=== PATIENT | female | born 1980 | race Caucasian/White ===

== ENCOUNTER 2021-08-24 22:50 | Emergency (ER) | payer BC ==
[2021-08-24] MEDS ORDERED: NA CHLORIDE 0.9% 1,000 ML ONE (23:27)
[2021-08-24 23:49] LABS: Absolute Lymphocytes (CBC) 2.4 K/uL (0.7-4.9); Basophils % 0.8 % (0-1.3); Hematocrit 42.7 % (36.0-45.0); Lymphocytes % 27.4 % (15.3-44.8); MPV 10.5 fL (7.6-11.3); RBC Red Blood Cell Count 4.68 M/uL (3.86-4.86)
[2021-08-24 23:53] LABS: Urine Blood Negative (Negative); Urine Glucose Negative (Negative); Urine Protein Negative (Negative); Urine Specific Gravity <=1.005 (1.005-1.030); Urine pH 5.5 (5.0-7.0)
[2021-08-24 23:55] LABS: Protime INR 0.91
[2021-08-25] MEDS ORDERED: NALOXONE 0.4 MG/ML VIAL ONE ×2 (00:05→02:36)
[2021-08-25 00:14] LABS: Urine Specific Gravity/Preg <1.005 (1.005-1.030)
[2021-08-25 00:14] LABS: ALT/SGPT 53 U/L (12-78); AST/SGOT 28 U/L (15-37); Albumin 4.5 g/dL (3.4-5.0); Alkaline Phosphatase 92 U/L (45-117); BUN Blood Urea Nitrogen 6 mg/dL (7-18); Bicarbonate 24 mmol/L (21-32); Bilirubin Direct < 0.1 mg/dL (0-0.2); Bilirubin Total 0.2 mg/dL (0.2-1.0); Glucose Level 98 mg/dL (74-106); Potassium 3.3 mmol/L (3.5-5.1); Protein, Total 8.8 g/dL (6.4-8.2); Sodium Level 140 mmol/L (136-145)
[2021-08-25] MEDS ORDERED: NA CHLORIDE 0.9% 1,000 ML ONE (00:15)
[2021-08-25 00:20] LABS: Barbiturates NEGATIVE (NEGATIVE); Benzodiazepines NEGATIVE (NEGATIVE); Cocaine NEGATIVE (NEGATIVE); METHAMPHETAM POSITIVE (NEGATIVE); Methadone NEGATIVE (NEGATIVE); Opiates POSITIVE (NEGATIVE); Phencyclidine NEGATIVE (NEGATIVE); THC Cannibis NEGATIVE (NEGATIVE)
--- NOTE | 2021-08-25 05:30 | EDPHYS ---
[facility]: Unique Morrell Age: 41 yrs Sex: Female : 1980 Arrival Date: 08/24/2021 Time: 22:52 Bed 19 Private MD: ED Physician Ramírez Malloy HPI: 08/24 23:45 This 41 yrs old Female presents to ER via EMS with complaints of Possible cp Overdose. 23:45 The patient presents to the emergency department with a possible overdose, EMS reports cp patient reportedly took unknown number of hydrocodone 7.5 mg tablets while consuming alcohol this evening. 23:45 Associated signs and symptoms: Pertinent positives: tearfulness, Pertinent negatives: cp vomiting. EMS reports patient was [place] on [place] alley [place] local [employer] store. [employer]: 22:52 LMP 08/15/2021 cc4 Historical: - Allergies: 22:52 Sulfa (Sulfonamide Antibiotics); cc4 22:52 phenergan; cc4 - Home Meds: 22:52 None [Active]; cc4 - PMHx: 22:52 Bipolar disorder; Anxiety; depression; adjustment disorder; histronics; overdose; cc4 suicidal attempt two years ago; - Immunization history:: Adult Immunizations up to date, Client reports having NOT received the Covid vaccine. - Social history:: Smoking status: Reported history of juuling and/or vaping. Patient uses alcohol, street drugs, Methamphetamine (Meth). - Code Status:: Full code. ROS: 23:50 Constitutional: Negative for fever. cp 23:50 Cardiovascular: Negative for chest pain. cp 23:50 Respiratory: Negative for cough, wheezing. 23:50 Abdomen/GI: Negative for abdominal pain, vomiting, diarrhea, constipation. 23:50 Neuro: Negative for altered mental status. 23:50 Psych: Negative for auditory hallucinations, visual hallucinations, homicidal ideation, suicide gesture, suicidal ideation. 23:50 All other systems are negative. Exam: 23:55 Constitutional: The patient appears in no acute distress, alert, awake, non-toxic, well cp developed, well nourished. 23:55 Head/Face: Normocephalic, atraumatic. cp 23:55 Eyes: Pupils: pinpoint, bilaterally, Conjunctiva: normal, no exudate, no injection, Sclera: no appreciated abnormality, Lids and lashes: appear normal, bilaterally. 23:55 ENT: External ear(s): are unremarkable, Nose: is normal, Mouth: Lips: moist, Oral mucosa: moist, Posterior pharynx: Airway: no evidence of obstruction, patent. 23:55 Neck: C-spine: vertebral tenderness, is not appreciated, crepitus, is not appreciated. 23:55 Chest/axilla: Inspection: normal, Palpation: is normal, no crepitus, no tenderness. 23:55 Cardiovascular: Rate: tachycardic, Rhythm: regular. 23:55 Respiratory: the patient does not display signs of respiratory distress, Respirations: normal, no use of accessory muscles, no retractions, labored breathing, is not present, Breath sounds: are clear throughout, no decreased breath sounds, no stridor, no wheezing. 23:55 Abdomen/GI: Inspection: abdomen appears normal, Bowel sounds: active, all quadrants, Palpation: abdomen is soft and non-tender, in all quadrants. 23:55 Back: pain, is absent, ROM is normal. 23:55 Skin: injury, mild ecchymosis noted inner upper right leg. 23:55 Neuro: Orientation: to person, situation, Mentation: able to follow commands, slow to respond, Motor: moves all fours, strength is normal. 23:55 Psych: Affect is animated, Judgement / Insight is impaired. Delusions/hallucinations are not present. 08/25 01:58 ECG was reviewed by the Attending Physician. cp Vital Signs: 08/24 22:52 Weight 77.11 kg; Height 5 ft. 6 in. (167.64 cm); cc4 22:52 BP 120 / 75; Pulse 113; Resp 19 S; Temp 97.8; Pulse Ox 97% on R/A; cc4 22:52 BP 120 / 75; Pulse 113; Resp 19; Temp 97.8; Pulse Ox 97% on R/A; cc4 23:00 BP 98 / 68; Pulse 89; Resp 18 S; Pulse Ox 95% on R/A; cc4 08/25 00:01 BP 91 / 54; Pulse 84; Resp 16 S; Pulse Ox 93% on R/A; cc4 00:15 BP 109 / 84; Pulse 81; Resp 16 S; Pulse Ox 92% ; cc4 00:30 BP 118 / 73; Pulse 80; Resp 16 S; Pulse Ox 94% on R/A; cc4 00:52 BP 126 / 79; Pulse 70; Resp 18 S; Pulse Ox 96% on R/A; cc4 01:00 BP 117 / 81; Pulse 72; Resp 20 S; Pulse Ox 98% on R/A; cc4 01:15 BP 114 / 79; Pulse 77; Resp 18 S; Pulse Ox 95% on R/A; cc4 01:30 BP 105 / 88; Pulse 76; Resp 14 S; Pulse Ox 91% on R/A; cc4 01:45 BP 110 / 73; Pulse 70; Resp 16 S; Pulse Ox 91% on R/A; cc4 02:00 BP 97 / 63; Pulse 68; Resp 12 S; Pulse Ox 89% on R/A; cc4 02:15 BP 103 / 70; Pulse 66; Resp 10 S; Pulse Ox 89% on R/A; cc4 02:30 BP 104 / 65; Pulse 66; Resp 12 S; Pulse Ox 90% on R/A; cc4 02:45 BP 111 / 77; Pulse 69; Resp 16 S; Pulse Ox 100% on 4 lpm NC; cc4 03:00 BP 118 / 93; Pulse 70; Resp 16 S; Pulse Ox 100% on 4 lpm NC; cc4 03:15 BP 109 / 66; Pulse 66; Resp 20 S; Pulse Ox 100% on 4 lpm NC; cc4 03:30 BP 98 / 64; Pulse 70; Resp 18 S; Pulse Ox 100% on 4 lpm NC; cc4 03:45 BP 94 / 60; Pulse 71; Resp 20 S; Pulse Ox 100% on 4 lpm NC; cc4 04:00 BP 93 / 63; Pulse 71; Resp 16 S; Pulse Ox 100% on 4 lpm NC; cc4 04:15 BP 92 / 66; Pulse 70; Resp 16 S; Pulse Ox 99% on 4 lpm NC; cc4 04:30 BP 100 / 69; Pulse 71; Resp 16 S; Pulse Ox 99% on 4 lpm NC; cc4 04:45 BP 117 / 82; Pulse 70; Resp 14 S; Pulse Ox 97% on 4 lpm NC; cc4 05:00 BP 118 / 82; Pulse 70; Resp 16 S; Temp 97.7(O); Pulse Ox 98% on 4 lpm NC; cc4 07:00 BP 103 / 63; Pulse 74; Resp 12; Temp 97.6(TE); Pulse Ox 96% on R/A; cc4 08/24 22:52 Body Mass Index 27.44 (77.11 kg, 167.64 cm) cc4 MDM: 08/24 22:56 Patient medically screened. [facility] 08/25 02:45 Transition of care: After a detail discussion of the patient's case, care is cp transferred to Ramírez Malloy MD. 02:48 Differential diagnosis: polypharmacy. Data reviewed: vital signs, nurses notes, lab janiya test result(s), EKG, radiologic studies, plain films. Data interpreted: emergency response coordinator: rate is 113 beats/min, rhythm is regular, Pulse oximetry: on room air. Test interpretation: by ED physician or midlevel provider: ECG, plain radiologic studies. Counseling: I had a detailed discussion with the patient and/or guardian regarding: the historical points, exam findings, and any diagnostic results supporting the discharge/admit diagnosis, lab results, radiology results. 08/24 22:58 Order name: Acetaminophen 08/24 22:58 Order name: Basic Metabolic Panel 08/24 22:58 Order name: CBC with Diff 08/24 22:58 Order name: ETOH Level; Complete Time: 02:47 cp 08/24 22:58 Order name: Hepatic Function; Complete Time: 02:47 cp 08/24 22:58 Order name: PT-INR; Complete Time: 02:47 cp 08/24 22:58 Order name: Ptt, Activated; Complete Time: 02:47 cp 08/24 22:58 Order name: Salicylate; Complete Time: 02:47 cp 08/24 22:58 Order name: Urine Drug Screen; Complete Time: 02:47 cp 08/24 22:58 Order name: Acetaminophen Level; Complete Time: 02:47 EDMS 08/24 22:58 Order name: Basic Metabolic Panel; Complete Time: 02:47 EDMS 08/24 22:58 Order name: CBC with Automated Diff; Complete Time: 02:47 EDMS 08/24 23:52 Order name: Urine Dipstick-Ancillary; Complete Time: 02:47 EDMS 08/24 23:52 Order name: Urine --Ancillary (enter results); Complete Time: 02:47 tt3 08/24 22:58 Order name: EKG; Complete Time: 22:58 08/24 22:58 Order name: EKG - Nurse/Tech; Complete Time: 01:57 08/24 22:58 Order name: IV Saline Lock; Complete Time: 01:57 cp 08/24 22:58 Order name: Labs collected and sent; Complete Time: 01:57 cp 08/24 22:58 Order name: Suicide Screening ([place]); Complete Time: 01:57 08/24 22:58 Order name: Urine Dipstick-Ancillary (obtain specimen); Complete Time: 00:18 08/25 00:18 Order name: CT Head C Spine 08/25 02:48 Order name: Tylenol Level [facility] 08/25 02:48 Order name: Acetaminophen Level; Complete Time: 04:24 EDMS 08/25 05:25 Order name: Diet Regular; Complete Time: 05:25 [facility] 08/24 22:58 Order name: Urine Test (obtain specimen); Complete Time: 00:18 08/25 03:06 Order name: Oxygen Per Protocol; Complete Time: 03:06 cc4 EC:58 Rate is 63 beats/min. Rhythm is regular. NM interval is normal. QRS interval is normal. cp QT interval is normal. T waves are Inverted in lead aVR. Interpreted by me. Reviewed by me. Administered Medications: 00:14 Drug: narcan 0.2mg 0.2 mg Route: IVP; Site: left antecubital; cc4 01:45 Drug: NS 0.9% 1000 ml Route: IV; Rate: 125 ml/hr; Site: left antecubital; cc4 02:15 Drug: narcan 0.2 mg 0.2 mg Route: IV; Rate: per protocol; Site: left antecubital; cc4 06:25 Not Given (Duplicate Order): NS 0.9% 1000 ml IV at 125 ml/hr continuous cc4 Disposition: 02:48 Co-signature as Attending Physician, Ramírez Malloy MD I agree with the assessment and janiya plan of care. Disposition Summary: 08/25/21 05:29 Discharge Ordered Location: Home janiya Problem: new janiya Symptoms: have improved janiya Condition: Stable janiya Diagnosis - Adverse effect of amphetamines janiya - Alcohol abuse with intoxication janiya - Adjustment disorder with anxiety janiya - Hypokalemia janiya Followup: janiya - With: Private Physician - When: 2 - 3 days - Reason: Recheck today's complaints, Continuance of care, Re-evaluation by your physician Discharge Instructions: - Discharge Summary Sheet janiya - Adjustment Disorder, Adult janiya - Alcohol Intoxication janiya - Panic Attack janiya - Substance Use Disorder janiya - Potassium Content of Foods janiya - Alcohol Intoxication, [id number] janiya - Substance Use Disorder and Mental Illness janiya - Hypokalemia janiya Forms: - Medication Reconciliation Form janiya - Thank You Letter janiya - Antibiotic Education janiya - Prescription Opioid Use janiya Signatures: Dispatcher [employer] EDMS Ramírez Malloy MD MD cha Attema, Lee, COMPUTER SUPPORT ANALYST-C COMPUTER SUPPORT ANALYST-Cla1 Ramírez Nicole PA PA cp Cooper, Christie, RN RN cc Corrections: (The following items were deleted from the chart) 01:41 08/24 23:45 EMS reports patient was found on ground by local store. cortney barr 08/25 03:37 08/24 23:05 Allergies: Sulfa (Sulfonamide Antibiotics); [place] [id number] 08/25 03:37 08/24 23:05 Home Meds: None; [place] [id number] 08/25 03:37 08/24 23:05 PMHx: Possible overdose; [place] [id number] 08/25 03:37 08/24 23:05 PMHx: histronics; [place] [id number] 08/25 03:37 08/24 23:05 PMHx: history of adjustment disorder; [place] [id number] 08/25 03:37 08/24 23:05 PMHx: depression; [place] [id number] 08/25 03:37 08/24 23:05 PMHx: anxiety; [place] [id number] 08/25 03:37 08/24 23:05 Immunization history: Adult Immunizations [place] [id number] 08/25 03:37 08/24 23:11 PMHx: suicidal two years ago cutting right arm with laceration repair; [place] [id number] 08/25 03:37 08/24 23:11 Immunization history: Adult Immunizations up to date, Client reports having [facility] NOT received the Covid vaccine. Flu vaccine status is unknown. [facility] 08/25 03:37 08/24 23:11 Social history: Smoking status: Reported history of juuling and/or vaping. [facility] Patient uses alcohol, occasionally. [facility] 08/25 03:37 08/24 23:11 Code Status: Full code cc4 [facility] 08/25 03:37 08/24 23:11 Coronavirus screen: The patient has NOT traveled to [place] in the past 14 cc4 days. The patient has NOT had contact with known/suspected case of Coronavirus? [facility] 08/25 03:37 08/24 23:11 Ebola Screening: Patient negative for fever greater than or equal to 101.5 cc4 degrees Fahrenheit, and additional compatible Ebola Virus Disease symptoms No symptoms or risks identified at this time [facility] 08/25 03:37 08/24 22:46 Allergies: Phenergan; [place] [id number] 08/25 03:37 08/24 22:46 PMHx: Bipolar disorder; [place] [id number] 08/25 06:05 05:33 Chest Single View+[email or web address] ordered. EDMS EDMS
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
[2021-08-25 08:32] VITALS: BP 103/63; TEMP 97.6; O2SAT 96
--- NOTE | 2021-08-25 10:28 | RAD REPORT ---
EXAM DESCRIPTION: CT - CTHCSPWOC - 08/25/2021 1:35 am COMPARISON: None. CLINICAL HISTORY: [facility] MAIN found on ground TECHNIQUE: Axial images were obtained from skull base to vertex without intravenous contrast. Imag es viewed on bone and brain windows. Multiplanar reformats were performed. Automated exposure contr ol was utilized on this examination as a dose lowering technique. FINDINGS: Brain parenchyma, ventricles, dura, meninges, and extra-axial spaces: Ventricles and sulci are normal. No abnormal attenuation of brain parenchyma is present. No acute intracranial hemor rhage or abnormal extra-axial fluid collections are present. Vascular structures: No hyperdense arteries or veins. Calvarium, mastoid air cells, paranasal sinuses and orbits: The calvarium is normal. The mastoid air cells are clear. Mild polysinusitis. Orbital structures are unremarkable. EXAM DESCRIPTION: CT Cervical Spine COMPARISON: None. CLINICAL HISTORY: [facility] MAIN found on ground TECHNIQUE: Axial CT images were obtained through the entire cervical spine without contrast. Sagit kasey and coronal reconstructions are provided. Automated exposure control was utilized on this examina tion as a dose lowering technique. FINDINGS: Vertebrae: Vertebral statures and alignment are normal. No acute fracture, dislocation o r destructive osseous process is present. Spinal canal, foramina, and facet joints: No significant spinal canal or foraminal stenoses. No significant facet arthropathy. Paraspinous soft-tissues: Normal. Thyroid: Normal. Other Findings: None. IMPRESSION: HEAD IMPRESSION: No acute intracranial abnormality. C-SPINE IMPRESSION: No acute findings of the cervical spine. Electronically signed by: Yuan Matos MD 08/25/2021 1:21 AM MOLASSES PREPARER Due to temporary technical issues with the PACS/Fluency reporting system, reports are being signed by the in house radiologist without review as a courtesy to ensure prompt reporting. The interpreting r adiologist is fully responsible for the content of the report.
--- NOTE | 2021-08-25 20:36 | EKG ---
Test Date: 2021-08-25 Test Time: 01:56:47 Field Marketer: TATIANA MEASUREMENT RESULTS: Intervals: Rate: 63 ND: 192 QRSD: 78 QT: 432 QTc: 442 [place]: P: 37 ND: 192 QRS: 44 T: 32 INTERPRETIVE STATEMENTS: Normal sinus rhythm Normal ECG No previous ECG available for comparison Electronically Signed On 08-25-21 20:35:00 PARKS RECREATION DIRECTOR by Akash Hernandez
--- OUTSIDE RECORDS SUMMARY | 2021-08-26 22:12 | XMS REPORT | Continuity of Care Document ---
:1980 Author Organization [facility] t Address [address] [place] [address] Care Team Providers Name Role Phone Kj VILLEGAS Primary Care Physician Unavailable RODRIGO Attending Clinician Unavailable Rodrigo DAVIS Attending Clinician Payers Payer Name Policy Type Policy Number Effective Date Expiration Date S nick [facility] [id number] 2017 00:00:00 Problems Condition Condition Condition Status Onset Resolution Last Treating Co mments Source Name Details Category Date Date Treatment Clinician Date Obesity Obesity Disease Active 2019-10 Univers (BMI (BMI 0-21 ity of 30-39.9) 30-39.9) 00:00: [place] 00 Medical Branch Antepartum Antepartum Disease Active U nivers variable variable 6-12 [place] Status Status Disease Active Univers post tubal post tubal 5-24 it y of ligation ligation 00:00: [place] 00 Medical Branch History of History of Disease Active U nivers 5-05 [place] of delivery, [place], [place] 00 Medi bill Branch in third in third trimester trimester AMA AMA Disease Active Univers (advanced (advanced 5-05 ity of maternal maternal 00:00: [place] age) age) 00 Medical multigravi multigravi Br anch da 35+, da 35+, third third trimester trimester Gastroesop Gastroesop Disease Active 2016-0 U jaleel harpereal hageal 5-05 ity of reflux reflux 00:00: [place] disease disease 00 Medical without without Branch esophagiti esophagiti s s Allergies, Adverse Reactions, Alerts Allergy Allergy Status Severity Reaction(s) Onset Inactive Treating Comm ents Source Name Type Date Date Clinician Prometha Propensi Active Rash 2005-10 Univer s zine Hcl ty to 2-22 ity of adverse 00:00: [place] reaction 00 Medical s Branch Sulfa Propensi Active Unknown - 2005-10 Unive rs (Sulfona ty to See comments 2-22 it y of mide adverse 00:00: [place] Antibiot reaction 00 Medica l ics) s Branch PROMETHA DRUG Active Rash 2005-10 Univers ZINE HCL INGREDI 2-22 ity of 00:00: [place] 00 Medical Branch SULFA Drug Active Unknown-Cmnt 2005-10 Univ ers (SULFONA Class 2-22 ity of MIDE 00:00: [place] ANTIBIOT 00 Medical ICS) Branch Social History Social Habit Start Date Stop Date Quantity Comments Source History of Cigarette Smoker Universi ty of tobacco use [facility] History SDOH University o f Alcohol Frequency [place] [facility] History SDOH University o f Alcohol Std [place] [facility] Drinks [facility] History SDWI University o f Alcohol Binge [place] Medic al Branch Exposure to Not sure University of SARS-CoV-2 [facility] (event) Ava Alcohol intake 2021-08-21 2021-08-21 0 /d University of 00:00:00 00:00:00 [facility] Tobacco use and 2020-08-03 2020-08-03 Never used Universit y of exposure 00:00:00 00:00:00 [facility] Alcohol Comment 2018-07-23 2018-07-23 Rare Universit y of 00:00:00 00:00:00 [facility] Tobacco Comment 2018-07-23 2018-07-23 5 cig per day Univer sity of 00:00:00 00:00:00 [facility] Sex Assigned At [birth year] Universit y of 00:00:00 00:00:00 [facility] Smoking Status Start Date Stop Date Source Former smoker 2020-08-03 00:00:00 2020-08-03 00:00:00 [facility] [place] [facility] Medications Ordered Filled Start Stop Current Ordering Indication Dosage Frequency Signature Comments Components Source Medication Medication Date Date Medication? Clinician (SIG) Name Name phentermine 2020-10- No 37.5mg Take 37.5 Univers 37.5 mg 10-21 mg by ity of tablet 14:18: 00:00 mouth [place] 15 :00 daily with Medical breakfast. Branch buPROPion 2019-10- No [id number] 150mg Take 1 Univers SR 0-21 08-21 tablet by ity of (WELLBUTRIN [place] 150 mg 00 :00 (two) Medical SR tablet times Branch daily. Begin with one tab qd x 3 days, then BID x 12 weeks. Immunizations Ordered Filled Immunization Date Status Comments [facility] e Immunization Name Name TDAP 2016-03-06 Completed [facility] 00:00:00 [facility] Vital Signs Vital Name Observation Time Observation Value Comments Source Systolic blood 2021-08-21 20:12:00 103 mm[Hg] [facility] Diastolic blood 2021-08-21 20:12:00 70 mm[Hg] [facility] Heart rate 2021-08-21 20:12:00 60 /min [facility] Body temperature 2021-08-21 20:12:00 36.72 Caprice [facility] Respiratory rate 2021-08-21 20:12:00 18 /min [facility] Body height 2021-08-21 20:12:00 167.6 cm [facility] Body weight 2021-08-21 20:12:00 81.194 kg [facility] BMI 2021-08-21 20:12:00 28.89 kg/m2 [facility] Procedures This patient has no known procedures. Encounters Start End Encounter Admission Attending Care Care Encounter Source Date/Time Date/Time Type Type Clinicians Facility Department ID 2022-08-22 2022-08-[address] [facility] [id number] Univers 13:00:00 13:00[id number] 2021-09-[address] [id number] Univers 10:00:00 10:00:00 ADRIANA [id number] [facility] 2021-09-06 2021-09-[address] [facility] [id number] Univers 00:00:00 00:00:00 ADRIANA lucas [facility] 2021-08-21 2021-08-21 Office Rdorigo [facility] [id number] [facility] 13:59:00 14:29:00 Visit Adriana [place] [id number] i [facility] [id number] Evie eason PROFESSIO [id number] Pa dical NAL [address] Branch BUILDING Results This patient has no known results.
== END 2021-08-25 07:45 | disposition home or self-care (01) ==
LOC: ER 22:50
DX: F10.129 Alcohol abuse with intoxication, unspecified (principal); T43.625A Adverse effect of amphetamines, initial encounter; F43.22 Adjustment disorder with anxiety; E87.6 Hypokalemia; F31.9 Bipolar disorder, unspecified; Z88.2 Allergy status to sulfonamides; Z88.8 Allergy status to other drugs, medicaments and biological substances
CPT/HCPCS: 93005; 85025; 80048; 36415; 80320; 80329 ×3; 81025; 85610; 80076; 85730; 81003; 80307; 70450; 72125; 99285; J2310 ×2; J7030 ×2